=== PATIENT | female | born 1960 | race Caucasian/White ===

== ENCOUNTER 2021-07-08 10:58 | Emergency (ER) | payer OTHER, MEDICARE ==
[~2021-07-08 10:58] MED LIST: AMLODIPINE BESY10 MG PO; ASPIRIN325 MG PO; ATORVASTATIN CA40 MG PO; COLACE100 MG PO; CYCLOBENZAPRINE5 MG PO; ESCITALOPRAM OX20 MG PO; GABAPENTIN300 MG PO; HCTZ12.5 MG PO; HYDROCODON-ACE1 EAC2 PO; LEVETIRACETAM1000 MG PO; LOSARTAN POTASS50 MG PO; METOPROLOL SUCC50 MG PO; NITROQUIK SL0.4 MG SL; VITAMIN B-121000 MC1 PO
== END 2021-07-08 15:20 | disposition home or self-care (01) ==
LOC: FER 10:58
DX: S93.401A Sprain of unspecified ligament of right ankle, initial encounter (principal); S93.601A Unspecified sprain of right foot, initial encounter; F17.210 Nicotine dependence, cigarettes, uncomplicated; Z88.5 Allergy status to narcotic agent; W10.9XXA Fall (on) (from) unspecified stairs and steps, initial encounter; Y93.89 Activity, other specified; Y92.000 Kitchen of unspecified non-institutional (private) residence as the place of occurrence of the external cause
CPT/HCPCS: 73590; 73610; 73630; J1885